=== PATIENT | female | born 1965 | race Two or more races ===

== ENCOUNTER 2017-12-05 11:31 | Inpatient (IN) | payer OTHER, MEDICARE ==
[~2017-12-05] VITALS: Ht 162.6 cm; Wt 109.8 kg
[2017-12-05] MEDS ORDERED: EMPA10TA PO (11:59)
[2017-12-05] MEDS ORDERED: LAMO25TA PO (11:59)
[2017-12-05] MEDS ORDERED: HALO2TAB PO (11:59)
[2017-12-05] MEDS ORDERED: BUPR75TA8 PO (11:59)
[2017-12-05] MEDS ORDERED: OLAN5TAB3 PO (11:59)
[2017-12-05] MEDS ORDERED: METF500T6 PO (11:59)
[2017-12-05] MEDS ORDERED: ZOLPIDEM TARTRATE 5 MG TABLET PO PRN (12:00)
[2017-12-05] MEDS ORDERED: LORAZEPAM 0.5 MG TABLET PO PRN (12:00)
[2017-12-05] MEDS ORDERED: MAG HYDROX/AL HYDROX/SIMETH 30 ML UDC PO PRN (12:00)
[2017-12-05] MEDS ORDERED: MAGNESIUM HYDROXIDE 30 ML UDC PO PRN (12:00)
--- NOTE | 2017-12-05 13:41 | NUR ---
CAR KNOCKER NOTE: PATIENT ARRIVED ON THE UNIT AT 1200 VIA AMBULANCE SERVICE; FROM [facility]. PATIENT DIAGNOSED WITH PSYCHOSIS. PATIENT STATES SHE HAS SUICIDAL IDEATION AND IS DEPRESSED. ADMISSION PAPERS SIGNED. BELONGINGS CHECKED. SKIN ASSESSMENT CHECKED AND CLEAR. CONTRABAND LOCKED. PSYCHIATRIST AND PRODUCTION DIRECTOR AWARE OF ADMISSION. ORDERS IN THE SYSTEM. PATIENT ORIENTED TO FACILITY POLICIES AND PROCEDURES.
[2017-12-05 16:00] VITALS: BP 154/88
[2017-12-05] MEDS: METFORMIN 500 MG TABLET PO SCH (17:20)
[2017-12-05 20:12] VITALS: BP 122/95
[2017-12-06 08:00] VITALS: BP 131/99
[2017-12-06] MEDS: METFORMIN 500 MG TABLET PO SCH ×2 (08:29→16:42)
[2017-12-06 08:31] LABS: ALBUMIN 3.1 g/dL (3.4-5.0); BILIRUBIN,TOTAL 0.8 mg/dL (0.2-1.0); CALCIUM, SERUM 8.3 mg/dL (8.5-10.1); CREATININE 0.8 mg/dL (0.6-1.3); POTASSIUM 3.6 mmol/L (3.5-5.1); TOTAL PROTEIN, SERUM 7.7 g/dL (6.4-8.2)
[2017-12-06 16:04] VITALS: BP 150/96
--- NOTE | 2017-12-06 18:54 | NUR ---
GPS RN NOTE: DR MORRIS NOTIFIED TODAY LABS A1C 7.9, GLUCOSE 142,ALBUMIN 3.1 NO NEW ORDERS AT THIS TIME. WILL CONTINUE MONITORING .
--- NOTE | 2017-12-06 19:18 | NUR ---
GPS RN NOTE; NEW T.O. ORDER ACCU CHECK MILD AC/HS ,ORDER PLACED AND CARED OUT.
[2017-12-06] MEDS ORDERED: DEXTROSE 50%-WATER 50 ML DISP.SYRIN IV PRN (19:30)
[2017-12-06 20:00] VITALS: BP 141/93
--- NOTE | 2017-12-06 20:00 | NUR ---
GPS RN NOTE: RECEIVED PATIENT IN TV ROOM ALERT AND ORIENTED X 2 IN NO APPARENT DISTRESS. PLEASANT UPON APPROACH, STATED DEPRESSED, DENIED SI, HI, HALLUCINATIONS, NO PAIN. WILL CONTINUE TO MONITOR Q 15 FOR COMFORT AND SAFETY.
[2017-12-06] MEDS: BLOOD SUGAR DIAGNOSTIC 1 EACH STRIP IN SCH (21:26)
[2017-12-06] MEDS: LamoTRIgine 25 MG TABLET PO SCH (21:52)
[2017-12-06] MEDS ORDERED: OLANZAPINE 5 MG/TAB.RAPDIS ONE (22:02)
[2017-12-06] MEDS ORDERED: INSULIN REGULAR, HUMAN 100 UNIT/ML 3 ML VIAL ONE (22:03)
[2017-12-06] MEDS: OLANZAPINE 5 MG/TAB.RAPDIS PO SCH (22:10)
[2017-12-06] MEDS: INSULIN REGULAR, HUMAN 100 UNIT/ML 3 ML VIAL SQ PRN (22:12)
--- NOTE | 2017-12-06 22:15 | NUR ---
ACCU CHECK 138MG/DL, 2 UNITS REGULAR INSULIN SQ PER SLIDING SCALE GIVEN.
[2017-12-06] MEDS: ACETAMINOPHEN 325 MG TABLET PO PRN (23:01)
--- NOTE | 2017-12-06 23:50 | NUR ---
TYLENOL 650 MG PO PRN FOR HEADACHE GIVEN AT 2315 WITH RELIEF OF PAIN.
[2017-12-07 08:00] VITALS: BP 150/99
[2017-12-07] MEDS: LamoTRIgine 25 MG TABLET PO SCH ×2 (08:10→21:05)
[2017-12-07] MEDS: BLOOD SUGAR DIAGNOSTIC 1 EACH STRIP IN SCH ×4 (08:10→21:27)
[2017-12-07] MEDS: METFORMIN 500 MG TABLET PO SCH ×2 (08:10→16:30)
[2017-12-07] MEDS: ESCITALOPRAM OXALATE (10 MG) 10 MG TABLET PO SCH (08:55)
[2017-12-07] MEDS: INSULIN REGULAR, HUMAN 100 UNIT/ML 3 ML VIAL SQ PRN ×2 (11:53→21:35)
[2017-12-07 16:11] VITALS: BP 153/98
--- NOTE | 2017-12-07 18:54 | NUR ---
GPS RN NOTE: NEW T.O. ORDER FROM DR ROBLES LISINOPRIL 5 MG PO DAILY ORDER PLACED AND CARED OUT
[2017-12-07 20:04] VITALS: BP 134/82
[2017-12-07] MEDS: OLANZAPINE 5 MG/TAB.RAPDIS PO SCH (21:06)
--- NOTE | 2017-12-07 21:45 | NUR ---
BLOOD SUGAR 161 MG/DL, 3 UNITS REGULAR INSULIN GIVEN SQ PER SLIDING SCALE.
--- NOTE | 2017-12-07 22:00 | NUR ---
PT ALERT ORIENTED X 3, CALM COOPERATIVE, SAD AFFECT, ADMITS TO VAGUE SUICIDAL IDEATION WITHOUT PLAN AND CONTRACTED FOR SAFETY. STATES SHE FEELS SOME HOPE. DENIES HI/HALLUCINATIONS. REFUSED BEDTIME SNACK OFFERED. DISCUSSED MEDICATIONS, VERBALIZES UNDERSTANDING OF REGIMEN. WILL CONTINUE TO MONITOR Q 15 FOR COMFORT AND SAFETY.
[2017-12-08] MEDS: BLOOD SUGAR DIAGNOSTIC 1 EACH STRIP IN SCH ×4 (07:43→21:07)
[2017-12-08 08:00] VITALS: BP 150/99
[2017-12-08] MEDS: METFORMIN 500 MG TABLET PO SCH ×2 (08:52→17:37)
[2017-12-08] MEDS: INSULIN REGULAR, HUMAN 100 UNIT/ML 3 ML VIAL SQ PRN ×2 (08:52→12:16)
[2017-12-08] MEDS: ESCITALOPRAM OXALATE (10 MG) 10 MG TABLET PO SCH (08:53)
[2017-12-08] MEDS: LamoTRIgine 25 MG TABLET PO SCH ×2 (08:53→21:07)
[2017-12-08] MEDS: LISINOPRIL (5MG) 5 MG TABLET PO SCH (08:53)
--- NOTE | 2017-12-08 09:27 | NUR ---
UR NOTE: CHAVEZ faxed clinical review to Ruthy Saunders case coordinator at [facility] f: [phone] P: [phone] ex: [phone].
--- NOTE | 2017-12-08 14:55 | NUR ---
INITIAL DISCHARGE PLAN: Patient wishes to return home to [address] [place] [address]. SW contacted pts Melvin Duvall [phone] who confirmed pt is able to return home and he would be picking her up when stable for discharge. SW will help form a safe and proper discharge in collaboration with MD and pts .
[2017-12-08 16:11] VITALS: BP 126/93
[2017-12-08 20:00] VITALS: BP 137/114
[2017-12-08] MEDS: OLANZAPINE 5 MG/TAB.RAPDIS PO SCH (21:08)
[2017-12-09] MEDS: ACETAMINOPHEN 325 MG TABLET PO PRN ×2 (04:36→16:40)
--- NOTE | 2017-12-09 06:45 | NUR ---
GPS RN NOTE: PER INTAKE AND OUTPUT, PATIENT HAS NO BM SINCE 12/05/17-12/09/17. SPOKE TO THE PATIENT AND PATIENT STATED THAT SHE HAD A BM MEDIUM SIZE YESTERDAY 12/08/17 DURING THE DAY. PATIENT DENIES ANY DISCOMFORT. WILL CONTINUE TO MONITOR [id number] FOR SAFETY
[2017-12-09 08:00] VITALS: BP 143/99
[2017-12-09 08:12] VITALS: BP 143/99
[2017-12-09] MEDS: BLOOD SUGAR DIAGNOSTIC 1 EACH STRIP IN SCH ×4 (08:51→21:18)
[2017-12-09] MEDS: LamoTRIgine 25 MG TABLET PO SCH ×2 (08:52→21:07)
[2017-12-09] MEDS: METFORMIN 500 MG TABLET PO SCH ×2 (08:52→16:40)
[2017-12-09] MEDS: ESCITALOPRAM OXALATE (10 MG) 10 MG TABLET PO SCH (08:52)
[2017-12-09] MEDS: LISINOPRIL (5MG) 5 MG TABLET PO SCH (08:52)
[2017-12-09] MEDS: INSULIN REGULAR, HUMAN 100 UNIT/ML 3 ML VIAL SQ PRN ×3 (08:55→21:34)
--- NOTE | 2017-12-09 09:28 | NUR ---
UR NOTE: CHAVEZ faxed clinical review to Ruthy Saunders director case management at [facility] f: [phone] P: [phone] ex: [phone].
[2017-12-09 16:00] VITALS: BP 133/90
[2017-12-09 16:13] VITALS: BP 133/90
[2017-12-09 19:59] VITALS: BP 160/99
[2017-12-09] MEDS: OLANZAPINE 5 MG/TAB.RAPDIS PO SCH (21:07)
[2017-12-10] MEDS: BLOOD SUGAR DIAGNOSTIC 1 EACH STRIP IN SCH ×4 (07:53→22:23)
[2017-12-10 08:00] VITALS: BP 149/94
[2017-12-10] MEDS: LamoTRIgine 25 MG TABLET PO SCH ×2 (08:44→22:21)
[2017-12-10] MEDS: METFORMIN 500 MG TABLET PO SCH ×2 (08:44→16:55)
[2017-12-10] MEDS: LISINOPRIL (5MG) 5 MG TABLET PO SCH (08:44)
[2017-12-10] MEDS: ESCITALOPRAM OXALATE (10 MG) 10 MG TABLET PO SCH (08:44)
[2017-12-10] MEDS: INSULIN REGULAR, HUMAN 100 UNIT/ML 3 ML VIAL SQ PRN (08:45)
--- NOTE | 2017-12-10 09:13 | NUR ---
UR NOTE: CHAVEZ received phone call from Ruthy Saunders, correctional casework specialist at [facility] f: [phone] P: [phone] ex: [phone]. stating that she has not received clinicals for pt and pt was only covered until 12/07/17. CHAVEZ called Ruthy back and left voicemail explaining she has faxed clinicals for 12/08/17 and 12/09/17 to [phone].
--- NOTE | 2017-12-10 10:18 | NUR ---
UR NOTE: CHAVEZ left verbal clinical review via voicemail- Ruthy Saunders, immigration case worker at [facility] P: [phone] ex: [phone].
--- NOTE | 2017-12-10 10:30 | NUR ---
UR NOTE: CHAVEZ CONTACTED MANFRED WITH [facility] AT [phone] TO INFORM [facility] THAT CHAVEZ HAS FAXED 2 CLINICAL REVIEWS DATED 12/08/17 AND 12/09/17 TO FAX #[phone] AND HAS ATTEMPTED TO CONTACT DAWOOD Pelaez [phone] EX:[phone] TO INFORM HER CLINICAL'S HAVE BEEN FAXED HOWEVER, DAWOOD LEFT CHAVEZ A VOICEMAIL STATING SHE HAS NOT RECEIVED CLINICAL'S AND IS LOOKING INTO CLOSING THE CASE. CHAVEZ ALSO INFORMED MANFRED THAT SHE HAS LEFT A VERBAL CLINICAL REVIEW ON DAWOOD'S VOICEMAIL AND IS REQUESTING MORE DAYS FOR COVERAGE . Addendum: 12/10/17 at 1049 by RAMON BYRNE CHAVEZ PROVIDED EMA WITH HER CALL BACK NUMBERS.
--- NOTE | 2017-12-10 11:05 | NUR ---
UR NOTE: [facility] Ruthy Saunders, director case management at [facility] P: [phone] ex: [phone] a voicemail for callback.
--- NOTE | 2017-12-10 12:02 | NUR ---
UR NOTE: SW received phone call from Ruthy Saunders, care associate at [facility] P: [phone] ex: [phone] stating pt was covered for 3 additional day which are 12/08/17, 12/09/17, and 12/10/17 with verbal clinical review due on 12/11/17.
[2017-12-10 16:00] VITALS: BP 137/95
[2017-12-10 20:15] VITALS: BP_SYST 160
[2017-12-10] MEDS: OLANZAPINE 5 MG/TAB.RAPDIS PO SCH (22:26)
[2017-12-11] MEDS: BLOOD SUGAR DIAGNOSTIC 1 EACH STRIP IN SCH ×5 (07:54→21:04)
[2017-12-11] MEDS: INSULIN REGULAR, HUMAN 100 UNIT/ML 3 ML VIAL SQ PRN ×2 (07:55→12:20)
[2017-12-11 08:00] VITALS: BP 120/69
--- NOTE | 2017-12-11 08:20 | NUR ---
UR NOTE: CHAVEZ left verbal clinical review via voicemail-Ruthy Saunders, director of casework department at [facility] P: [phone] ex: [phone].
[2017-12-11] MEDS: METFORMIN 500 MG TABLET PO SCH ×2 (08:46→16:39)
[2017-12-11] MEDS: LISINOPRIL (5MG) 5 MG TABLET PO SCH (08:46)
[2017-12-11] MEDS: ESCITALOPRAM OXALATE (10 MG) 10 MG TABLET PO SCH (08:46)
[2017-12-11] MEDS: LamoTRIgine 25 MG TABLET PO SCH ×2 (08:47→21:04)
--- NOTE | 2017-12-11 13:28 | NUR ---
UR NOTE: SW received a phone call from Ruthy Saunders, special education case manager at [facility] P: [phone] ex: [phone] who stated pt was authorized 1 day of coverage with a clinical review due tomorrow 12/12/17.
[2017-12-11 16:00] VITALS: BP 150/98
[2017-12-11 20:00] VITALS: BP 138/91
[2017-12-11] MEDS: OLANZAPINE 5 MG/TAB.RAPDIS PO SCH (21:07)
[2017-12-12 08:00] VITALS: BP 145/97
[2017-12-12] MEDS: BLOOD SUGAR DIAGNOSTIC 1 EACH STRIP IN SCH ×4 (08:20→21:31)
[2017-12-12] MEDS: METFORMIN 500 MG TABLET PO SCH ×2 (08:21→17:21)
[2017-12-12] MEDS: ESCITALOPRAM OXALATE (10 MG) 10 MG TABLET PO SCH (08:21)
[2017-12-12] MEDS: LamoTRIgine 25 MG TABLET PO SCH ×2 (08:21→21:31)
[2017-12-12] MEDS: LISINOPRIL (5MG) 5 MG TABLET PO SCH (08:21)
[2017-12-12] MEDS: INSULIN REGULAR, HUMAN 100 UNIT/ML 3 ML VIAL SQ PRN ×2 (08:23→17:25)
--- NOTE | 2017-12-12 09:24 | NUR ---
UR NOTE: CHAVEZ completed a live clinical review with Ruthy Saunders machine adjuster leader case trim at [facility] P: [phone] ex: [phone] who approved 3 days with clinical review due on Friday12/15/17.
[2017-12-12 16:05] VITALS: BP 141/98
[2017-12-12 20:00] VITALS: BP 131/92
[2017-12-12] MEDS: OLANZAPINE 5 MG/TAB.RAPDIS PO SCH (21:30)
[2017-12-13 08:08] VITALS: BP 137/94
[2017-12-13] MEDS: LamoTRIgine 25 MG TABLET PO SCH ×2 (08:37→21:28)
[2017-12-13] MEDS: METFORMIN 500 MG TABLET PO SCH ×2 (08:37→16:52)
[2017-12-13] MEDS: BLOOD SUGAR DIAGNOSTIC 1 EACH STRIP IN SCH ×4 (08:37→22:16)
[2017-12-13] MEDS: LISINOPRIL (5MG) 5 MG TABLET PO SCH (08:38)
[2017-12-13] MEDS: ESCITALOPRAM OXALATE (10 MG) 10 MG TABLET PO SCH (08:38)
[2017-12-13 16:00] VITALS: BP 136/95
[2017-12-13] MEDS: INSULIN REGULAR, HUMAN 100 UNIT/ML 3 ML VIAL SQ PRN (18:28)
[2017-12-13 20:00] VITALS: BP 140/93
[2017-12-13] MEDS: OLANZAPINE 5 MG/TAB.RAPDIS PO SCH (22:17)
[2017-12-14] MEDS: BLOOD SUGAR DIAGNOSTIC 1 EACH STRIP IN SCH ×4 (07:40→21:20)
[2017-12-14] MEDS: ESCITALOPRAM OXALATE (10 MG) 10 MG TABLET PO SCH (08:29)
[2017-12-14] MEDS: METFORMIN 500 MG TABLET PO SCH ×2 (08:29→17:49)
[2017-12-14] MEDS: LISINOPRIL (5MG) 5 MG TABLET PO SCH (08:29)
[2017-12-14] MEDS: LamoTRIgine 25 MG TABLET PO SCH ×2 (08:30→21:19)
[2017-12-14] MEDS: INSULIN REGULAR, HUMAN 100 UNIT/ML 3 ML VIAL SQ PRN ×2 (08:35→18:32)
--- NOTE | 2017-12-14 08:35 | NUR ---
[id number]: BLOOD SUGAR IS 140 MG/DL AND GAVE 2 UNITS OF REGULAR INSULIN
[2017-12-14 08:55] VITALS: BP 138/90
[2017-12-14 16:00] VITALS: BP 141/84
[2017-12-14 20:00] VITALS: BP 154/95
[2017-12-14 20:58] VITALS: BP 154/95
[2017-12-14] MEDS: OLANZAPINE 5 MG/TAB.RAPDIS PO SCH (21:20)
[2017-12-15 08:00] VITALS: BP 143/80
[2017-12-15] MEDS: BLOOD SUGAR DIAGNOSTIC 1 EACH STRIP IN SCH ×2 (08:13→12:26)
[2017-12-15] MEDS: ESCITALOPRAM OXALATE (10 MG) 10 MG TABLET PO SCH (08:34)
[2017-12-15] MEDS: METFORMIN 500 MG TABLET PO SCH (08:34)
[2017-12-15 08:35] VITALS: BP 143/80
[2017-12-15] MEDS: LISINOPRIL (5MG) 5 MG TABLET PO SCH (08:35)
[2017-12-15] MEDS: LamoTRIgine 25 MG TABLET PO SCH (08:35)
[2017-12-15] MEDS: INSULIN REGULAR, HUMAN 100 UNIT/ML 3 ML VIAL SQ PRN (08:45)
--- NOTE | 2017-12-15 15:00 | NUR ---
[id number]: PT IS 51 YEARS OLD TO HOME LOCATED AT [facility] [place] [address] IN STABLE CONDITION. COMPLAINT WITH MEDICATIONS, COOPERATIVE WITH TREATMENT PLANS. PT DENIES SI/HI AND INSTRUCTED TO GO TO THE CLOSEST ER IF DEVELOPING SI/HI. BEHAVIOR IMPROVED, PSYCHIATRIC TX PLANS MET, MEDICAL TX PLANS DEFERRED FOR CONTINUAL MONITORING. EDUCATED PT ABOUT AFTER CARE PLAN AND COPY PROVIDED. RETURNED PERSONAL BELONGINGS TO PT. MEDICATIONS RECONCILED WITH DR. DR. DUSTIN MORRIS AND DR. JOLLY. REPORT GIVEN TO NAMED REBECCA FOR CONTINUITY OF CARE. PT SIGNED DISCHARGE PAPERWORK. SKIN ASSESSMENT DONE. PT LEFT THE UNIT ACCOMPANIED BY VIA PRIVATE CAR
--- NOTE | 2017-12-15 15:21 | NUR ---
DISCHARGE NOTE: Pt was discharged 3:00pm home [place] [address] [place] [address]. Pts Melvin [phone] picked pt up for transport home and agreed with discharge plan. Pts mood was pleasant with congruent affect and denied suicidal/homicidal ideations and denied visual/auditory hallucinations. Pt will schedule follow up appointment with Psychiatrist: Dr. Chris Rivera [address] [facility] [id number] and Residential Fee Appraiser: Dr. Coleman Thomas [address] [address] [facility] [id number] . The multidisciplinary exitcare form was done, printed, signed, and given to the patient. Addendum: 12/16/17 at 1522 by RAMON BYRNE CHAVEZ faxed home health referral to [facility] [address], [place] [address] P: [phone] F: [phone].
== END 2017-12-15 15:00 | disposition home or self-care (01) | DRG 885 ==
LOC: GPS 11:31
PROVIDERS: ADMIT Psychiatry & Neurology Psychiatry; ATTEND Nurse Practitioner Acute Care
DX: F25.1 Schizoaffective disorder, depressive type (principal); E43 Unspecified severe protein-calorie malnutrition; Z68.41 Body mass index [BMI] 40.0-44.9, adult; E66.01 Morbid (severe) obesity due to excess calories; I10 Essential (primary) hypertension; E11.9 Type 2 diabetes mellitus without complications; F41.9 Anxiety disorder, unspecified; G47.00 Insomnia, unspecified; Z79.4 Long term (current) use of insulin
CPT/HCPCS: 36415; 80053-TC; 80061-TC; 82962-TC; 84703-TC; A6402; J1815; Z7610